=== PATIENT | male | born 1955 | race Caucasian/White ===

== ENCOUNTER 2019-08-19 10:46 | Day surgery (SDC) | payer MEDICARE ==
[~2019-08-19] VITALS: Ht 180.3 cm; Wt 129.8 kg
[~2019-08-19 10:46] MED LIST: ASPI325; Bactrim 400-801 EACH PO; COZAR; HYDACE5 PO; LEVFLO500 PO; LIPITOR; METO50ER; METR500 PO
[2019-08-19] MEDS ORDERED: Aspir 8181 MG PO (11:20)
== END 2019-08-19 13:01 | disposition home or self-care (01) ==
LOC: ORSCSDS 10:46
DX: Z12.11 Encounter for screening for malignant neoplasm of colon (principal); D12.0 Benign neoplasm of cecum; K63.5 Polyp of colon; K57.30 Diverticulosis of large intestine without perforation or abscess without bleeding; K64.8 Other hemorrhoids; G47.33 Obstructive sleep apnea (adult) (pediatric); I10 Essential (primary) hypertension; E78.5 Hyperlipidemia, unspecified; I25.10 Atherosclerotic heart disease of native coronary artery without angina pectoris; Z79.82 Long term (current) use of aspirin; Z79.899 Other long term (current) drug therapy; E66.01 Morbid (severe) obesity due to excess calories; Z68.39 Body mass index [BMI] 39.0-39.9, adult; F17.220 Nicotine dependence, chewing tobacco, uncomplicated
CPT/HCPCS: 88305; J2704; J7120

== ENCOUNTER → 2019-10-05 | Outpatient (CLI) | payer MEDICARE ==
[~2019-10-05] MED LIST changes: +Aspir 8181 MG PO
== END | disposition home or self-care (01) ==
LOC: LAB SHORT 16:59 → LAB 16:59
DX: H10.32 Unspecified acute conjunctivitis, left eye (principal)
CPT/HCPCS: 87081

== ENCOUNTER 2022-11-09 01:55 | Inpatient (IN) | payer MEDICARE ==
[~2022-11-09] VITALS: Ht 172.7 cm; Wt 127.0 kg
[2022-11-09 03:05] LABS: Albumin, Blood 3.8 g/dL (3.4-5.0); Albumin/Globulin Ratio 0.9 (0.8-1.8); Bilirubin, Total 0.4 mg/dL (0.1-1.0); Bun/Creatinine Ratio 14.4 (12.0-20.0); Calcium, Blood 8.4 mg/dL (8.5-10.1); Creatinine, Blood 1.11 mg/dL (0.60-1.20); Globulin, Blood 4.2 g/dL (2.2-4.0); Potassium, Blood 4.6 mmol/L (3.5-5.5)
[2022-11-09 03:08] LABS: BASOPHILS ABSOLUTE AUTO 0.04 K/mm3 (0.00-0.23); BASOPHILS PERCENT AUTO 1 % (0-2); EOSINOPHILS ABSOLUTE AUTO 0.01 K/mm3 (0.00-0.68); EOSINOPHILS PERCENT AUTO 0 % (0-6); Hematocrit 46.2 % (37.0-53.0); Hemoglobin 16.1 g/dL (13.5-17.5); IMMATURE GRAN ABSOLUTE AUTO 0.04 K/mm3 (0.00-0.10); IMMATURE GRAN PERCENT AUTO 1 % (0-1); LYMPHOCYTES ABSOLUTE AUTO 1.22 K/mm3 (0.84-5.20); LYMPHOCYTES PERCENT AUTO 25 % (21-46); MONOCYTES ABSOLUTE AUTO 0.53 K/mm3 (0.16-1.47); MONOCYTES PERCENT AUTO 11 % (4-13); Mean Corpuscular HGB 36.2 pg (26.0-34.0); Mean Corpuscular HGB Conc 34.8 g/dL (31.5-36.5); Mean Corpuscular Volume 104 fL (80-100); Mean Platelet Volume 9.1 fL (9.1-12.4); NEUTROPHILS ABSOLUTE AUTO 3.03 K/mm3 (1.96-9.15); NEUTROPHILS PERCENT AUTO 62 % (41-73); Platelet Count 241 K/mm3 (150-400); RDW Coefficient Variation 12.5 % (11.7-14.2); RDW Standard Deviation 47.9 fL (35.1-46.3); Red Blood Cell Count 4.45 M/mm3 (4.30-5.90); White Blood Cell Count 4.87 K/mm3 (4.00-11.30)
[2022-11-09 03:32] LABS: Influenza A, PCR NEGATIVE (NEGATIVE); Influenza B, PCR NEGATIVE (NEGATIVE); Resp Syncytial Virus, PCR NEGATIVE (NEGATIVE); SARS-Cov-2 (COVID-19) PCR, MMC NEGATIVE (NEGATIVE)
[2022-11-09 08:15] LABS: PCO2 Arterial 72.8 mmHg (35-45); PO2 Arterial 75.3 mmHg (80-100); pH Blood Arterial 7.22 (7.35-7.45)
[2022-11-09 12:17] LABS: Base Excess Venous 5.5 mmol/L; Bicarbonate Venous 27.9 mmol/L (24.0-30.0); PCO2 Venous 53.1 mmHg (38-42); pH Blood Venous 7.37 (7.34-7.37)
[2022-11-09] MEDS ORDERED: LOSA50 PO (12:49)
[2022-11-09] MEDS ORDERED: Ventolin/Prove6.7 GM INH (12:50)
[2022-11-09] MEDS ORDERED: ROSUVASTATIN CA10 MG PO (12:50)
[2022-11-09] MEDS ORDERED: MULVITA PO (12:51)
[2022-11-09] MEDS ORDERED: CALCIUM-FOLIC1 EACH PO (12:52)
[2022-11-09] MEDS ORDERED: C COMPLEX1000 M1 PO (12:52)
--- NOTE | 2022-11-09 13:30 | NUR ---
ASSUMED CARE: PT ARRIVES TO ROOM ON 4L O2 VIA NC. ALERT AND ORIENTED, TALKING TO STAFF. TREMORS NOTED. UPON QUESTIONING PATIENT HE STATES "IT'S THE DT'S" PT STATES HE DRINKS 400-700MLS OF VODKA A DAY. SINUS TACH IN LOW 100S AT THIS TIME ON TELE. SOFTWARE TEAM LEADER AT BEDSIDE.
--- NOTE | 2022-11-09 14:49 | NUR ---
DISCUSSED PT'S STATUS WITH DR DAMIAN WHO GIVES ORDERS FOR CIWA SCALE. DISCUSSED PT'S TROPONINS WITH HER AND SHE STATES TO CONTINUE TO TREND BECAUSE SHE BELIEVES DEMAND ISCHEMIA IS AT PLAY. ADMINISTERED LIBRIUM AND GABAPENTIN PER ORDERS. EXPLAINED ADMISSION PROCESS TO PT INCLUDING ADMISSION ASSESSMENT AND WANTING TO GET A THOROUGH SKIN ASSESSMENT. PT DECLINED REMOVING PANTS AT THIS TIME WHILE HE HAS VISITORS. PT ASKED IF HE WOULD BE ABLE TO GO HOME LATER TODAY AND INFORMED HIM THAT WE ARE TRENDING TROPONIN AND BLOOD GASES. TOLD PT THAT IT WOULD BE IN HIS BEST INTEREST TO AT LEAST STAY UNTIL TOMORROW AND ALLOW US TO TREND HIS LABS. PT AGREEABLE TO THIS AT THIS TIME.
--- NOTE | 2022-11-09 18:17 | NUR ---
SHIFT SUMMARY: PT SITTING UPRIGHT AT SIDE OF BED SINCE ADMISSION. VISITORS AT BEDSIDE. PT WEARING NC WITH 4L IN PLACE, SATTING LOW 90S. AWARE THAT HE NEEDS TO WEAR BIPAP WITH SLEEP. TROPONINS TRENDING DOWN. CURRENT CIWA SCORE 4 BECAUSE OF TREMOR. DENIES FURTHER NEEDS OR CONCERNS AT THIS TIME.
[2022-11-10 04:38] LABS: BASOPHILS ABSOLUTE AUTO 0.04 K/mm3 (0.00-0.23); BASOPHILS PERCENT AUTO 1 % (0-2); EOSINOPHILS PERCENT AUTO 2 % (0-6); Hematocrit 38.7 % (37.0-53.0); Hemoglobin 13.3 g/dL (13.5-17.5); IMMATURE GRAN ABSOLUTE AUTO 0.03 K/mm3 (0.00-0.10); IMMATURE GRAN PERCENT AUTO 1 % (0-1); LYMPHOCYTES ABSOLUTE AUTO 1.58 K/mm3 (0.84-5.20); LYMPHOCYTES PERCENT AUTO 26 % (21-46); MONOCYTES ABSOLUTE AUTO 1.17 K/mm3 (0.16-1.47); MONOCYTES PERCENT AUTO 19 % (4-13); Mean Corpuscular HGB Conc 34.4 g/dL (31.5-36.5); Mean Corpuscular Volume 105 fL (80-100); Mean Platelet Volume 9.9 fL (9.1-12.4); NEUTROPHILS ABSOLUTE AUTO 3.28 K/mm3 (1.96-9.15); NEUTROPHILS PERCENT AUTO 53 % (41-73); Platelet Count 186 K/mm3 (150-400); RDW Coefficient Variation 12.3 % (11.7-14.2); Red Blood Cell Count 3.69 M/mm3 (4.30-5.90)
[2022-11-10 04:59] LABS: Albumin/Globulin Ratio 0.8 (0.8-1.8); Bilirubin, Total 0.6 mg/dL (0.1-1.0); Bun/Creatinine Ratio 24.4 (12.0-20.0); Calcium, Blood 8.5 mg/dL (8.5-10.1); Creatinine, Blood 0.78 mg/dL (0.60-1.20); Globulin, Blood 3.7 g/dL (2.2-4.0); Potassium, Blood 3.5 mmol/L (3.5-5.5); Total Protein, Blood 6.7 g/dL (6.4-8.2)
--- NOTE | 2022-11-10 07:24 | NUR ---
ASSUMED CARE: PT RESTING QUITLY IN BED. CPAP IN PLACE. NSR ON TELE IN THE 70S. NO ACUTE NEEDS OR CONCERNS AT THIS TIME.
[2022-11-10] MEDS ORDERED: ACET325 PO (09:09)
[2022-11-10] MEDS ORDERED: VISBIOME 112.51 EACH PO (09:09)
[2022-11-10] MEDS ORDERED: CEPH500 PO (09:10)
--- NOTE | 2022-11-10 12:12 | NUR ---
PT'S IV'S DC'D WNL. PT GIVEN INSTRUCTIONS REGARDING MEDICATIONS AND FOLLOW UP APPOINTMENTS. PT STATES HE HAS A VERY GOOD SUPPORT SYSTEM AND DECLINES NEED FOR FURTHER ALCOHOL CESSATION RESOURCES. ESCORTED OUT VIA WHEEL CHAIR BY HOSPITAL STAFF.
== END 2022-11-10 12:05 | disposition home or self-care (01) | DRG 896 ==
LOC: ER 01:55 → ERHOLD 08:10 → PCU 12:45
PROVIDERS: Student in an Organized Health Care Education/Training Program; ADMIT Internal Medicine
PROC: 5A09357 Assistance with Respiratory Ventilation, Less than 24 Consecutive Hours, Continuous Positive Airway Pressure (ICD-10-PCS; principal; 2022-11-09)
DX: F10.229 Alcohol dependence with intoxication, unspecified (principal); I21.A1 Myocardial infarction type 2; J96.01 Acute respiratory failure with hypoxia; J96.02 Acute respiratory failure with hypercapnia; L03.116 Cellulitis of left lower limb; G47.33 Obstructive sleep apnea (adult) (pediatric); I10 Essential (primary) hypertension; E78.5 Hyperlipidemia, unspecified; I25.10 Atherosclerotic heart disease of native coronary artery without angina pectoris; Z20.822 Contact with and (suspected) exposure to COVID-19; Z99.81 Dependence on supplemental oxygen; Z95.5 Presence of coronary angioplasty implant and graft; Z79.82 Long term (current) use of aspirin; Z79.899 Other long term (current) drug therapy; I25.2 Old myocardial infarction; Z98.890 Other specified postprocedural states; Z79.51 Long term (current) use of inhaled steroids; Z71.41 Alcohol abuse counseling and surveillance of alcoholic
CPT/HCPCS: 0241U; 36415; 36600; 70450; 71045; 71260; 80053; 82803; 83690; 84484; 85025; 93005; 93010; 93971; 94640; 94660; 94664; 94761; 94762; A9270; G0480; J0690; J0696; J1650; J3411; Q9967

== ENCOUNTER 2024-09-15 11:35 | Day surgery (SDC) | payer MEDICARE ==
[~2024-09-15] VITALS: Ht 180.3 cm; Wt 121.2 kg
[~2024-09-15 11:35] MED LIST changes: +ACET325 PO; +ADCIRCA20 MG PO; +C COMPLEX1000 M1 PO; +CALCIUM-FOLIC1 EACH PO; +CEPH500 PO; +CPAP; +Crestor20 MG PO; +LOSA50 PO; +Lactated Ringer's 1,000 ML IV ONE; +MELATONIN5 M1 PO; +MULTI-VITAMIN1 EAC2 PO; +MULVITA PO; +ROSUVASTATIN CA10 MG PO; +SILD50TA PO; +TAMS.4ER PO; +VISBIOME 112.51 EACH PO; +VITAMIN D31000 UNI1 PO; +Ventolin/Prove6.7 GM INH
[2024-09-15] MEDS ORDERED: TADA10TA (11:54)
[2024-09-15] MEDS ORDERED: MELATONIN5 M1 (11:54)
[2024-09-15] MEDS ORDERED: LORA1 (11:55)
[2024-09-15] MEDS ORDERED: SOMA250 MG (11:57)
[2024-09-15] MEDS ORDERED: Lactated Ringer's 1,000 ML IV ONE (12:49)
--- NOTE | 2024-09-15 13:07 | NUR ---
09/15/24 [id number] Chelsey Haro PT. DENIES ANY PAIN.
[2024-09-15] MEDS ORDERED: Midazolam HCL 1 MG/ML 5MLVIAL ONE (13:26)
[2024-09-15] MEDS ORDERED: propofoL 50 ML IV ONE (13:26)
[2024-09-15] MEDS ORDERED: FentaNYL Citrate 50 MCG/ML 2 ML Injection ONE (13:26)
[2024-09-15 14:41] VITALS: BP 107/69
== END 2024-09-15 14:33 | disposition home or self-care (01) ==
LOC: ORSCSDS 11:35
PROVIDERS: Specialist
PROC: 0DBL8ZX Excision of Transverse Colon, Via Natural or Artificial Opening Endoscopic, Diagnostic (ICD-10-PCS; principal; 2024-09-15 13:30)
PROC: 0DBH8ZX Excision of Cecum, Via Natural or Artificial Opening Endoscopic, Diagnostic (ICD-10-PCS; principal; 2024-09-15 13:30)
DX: Z12.11 Encounter for screening for malignant neoplasm of colon (principal); Z86.0101 Personal history of adenomatous and serrated colon polyps; D12.0 Benign neoplasm of cecum; D12.3 Benign neoplasm of transverse colon; K64.8 Other hemorrhoids; K57.30 Diverticulosis of large intestine without perforation or abscess without bleeding; I25.10 Atherosclerotic heart disease of native coronary artery without angina pectoris; I10 Essential (primary) hypertension; E78.5 Hyperlipidemia, unspecified; G47.33 Obstructive sleep apnea (adult) (pediatric); Z79.899 Other long term (current) drug therapy; Z79.82 Long term (current) use of aspirin; I25.2 Old myocardial infarction
CPT/HCPCS: 88305; J2250; J2704; J3010; J7120

== ENCOUNTER → 2025-02-18 | Outpatient (CLI) | payer MEDICARE ==
[~2025-02-18] MED LIST changes: +LORA1; -Lactated Ringer's 1,000 ML IV ONE; +MELATONIN5 M1; +SOMA250 MG; +TADA10TA
[2025-02-18 14:33] LABS: BASOPHILS ABSOLUTE AUTO 0.07 K/mm3 (0.00-0.23); BASOPHILS PERCENT AUTO 1 % (0-2); EOSINOPHILS ABSOLUTE AUTO 0.08 K/mm3 (0.00-0.68); EOSINOPHILS PERCENT AUTO 1 % (0-6); Hematocrit 44.3 % (37.0-53.0); IMMATURE GRAN ABSOLUTE AUTO 0.03 K/mm3 (0.00-0.10); IMMATURE GRAN PERCENT AUTO 0 % (0-1); LYMPHOCYTES ABSOLUTE AUTO 1.93 K/mm3 (0.84-5.20); LYMPHOCYTES PERCENT AUTO 23 % (21-46); MONOCYTES ABSOLUTE AUTO 0.76 K/mm3 (0.16-1.47); MONOCYTES PERCENT AUTO 9 % (4-13); Mean Corpuscular HGB 33.8 pg (26.0-34.0); Mean Corpuscular HGB Conc 36.1 g/dL (31.5-36.5); Mean Corpuscular Volume 94 fL (80-100); NEUTROPHILS PERCENT AUTO 67 % (41-73); Platelet Count 287 K/mm3 (150-400); RDW Standard Deviation 41.6 fL (35.1-46.3); Red Blood Cell Count 4.73 M/mm3 (4.30-5.90); White Blood Cell Count 8.57 K/mm3 (4.00-11.30)
[2025-02-18 15:25] LABS: PSA, %Free 13.4 %; PSA, Free 0.265 ng/mL
[2025-02-18 15:45] LABS: Thyroid Stimulating Hormone 0.913 uIU/mL (0.360-4.800)
[2025-02-18 15:46] LABS: Alanine Aminotransfer (ALT/SGP 27 U/L (12-78); Albumin, Blood 3.7 g/dL (3.4-5.0); Alk Phos 75 U/L (50-136); Anion Gap 9 mmol/L (3-11); Aspartate Aminotrans (AST/SGOT 23 U/L (12-37); Bilirubin, Total 0.5 mg/dL (0.1-1.0); Blood Urea Nitrogen 12 mg/dL (8-24); Bun/Creatinine Ratio 15.7 (12.0-20.0); CO2, Blood 24 mmol/L (21-32); Calcium, Blood 8.8 mg/dL (8.5-10.1); Chloride, Blood 107 mmol/L (98-108); Creatinine, Blood 0.76 mg/dL (0.60-1.20); Globulin, Blood 3.6 g/dL (2.2-4.0); Glomerular Filtration Rate 96 (60-); Glucose, Blood 116 mg/dL (70-99); Potassium, Blood 2.3 mmol/L (3.5-5.5); Sodium, Blood 138 mmol/L (136-145); Total Protein, Blood 7.3 g/dL (6.4-8.2)
[2025-02-18 21:12] LABS: Free Thyroxine 1.1 ng/dL (0.70-1.60); Magnesium, Blood 2.2 mg/dL (1.6-2.4); Triiodothyronine, Free 2.73 pg/mL (2.18-3.98)
== END | disposition home or self-care (01) ==
LOC: LAB SHORT 13:06 → LAB 13:06
PROVIDERS: Internal Medicine
DX: E53.8 Deficiency of other specified B group vitamins (principal); F41.8 Other specified anxiety disorders; I10 Essential (primary) hypertension; R63.4 Abnormal weight loss; R97.20 Elevated prostate specific antigen [PSA]
CPT/HCPCS: 80053; 82533; 82607; 82746; 83735; 84153; 84154; 84439; 84443; 84481; 85025

== ENCOUNTER → 2025-04-01 | Outpatient (CLI) | payer MEDICARE ==
[2025-04-01 23:07] LABS: Calcium, Blood 8.9 mg/dL (8.5-10.1); Creatinine, Blood 0.71 mg/dL (0.60-1.20)
== END | disposition home or self-care (01) ==
LOC: LAB 10:02 → LAB SHORT 10:02
PROVIDERS: Internal Medicine
DX: I10 Essential (primary) hypertension (principal)
CPT/HCPCS: 80048